=== PATIENT | female | born 1950 | race Caucasian/White ===

== ENCOUNTER 2021-11-04 11:26 | Outpatient (CLI) | payer MEDICARE, SELFPAY ==
[2021-11-04 11:56] VITALS: BP 151/75; PULSE 74; RESP 18; TEMP 36.4; O2SAT 99
== END 2021-11-04 12:10 | disposition home or self-care (01) ==
LOC: INF 11:31
PROVIDERS: PCP Family Medicine; Visit Provider Family Medicine
DX: M81.0 Age-related osteoporosis without current pathological fracture (principal)
CPT/HCPCS: 96372; J0897

== ENCOUNTER 2022-05-05 11:26 | Outpatient (CLI) | payer MEDICARE, SELFPAY ==
[2022-05-05 11:36] VITALS: BP 134/75; PULSE 68; RESP 18; TEMP 36.3; O2SAT 100
== END 2022-05-05 11:50 | disposition home or self-care (01) ==
LOC: INF 11:27
PROVIDERS: PCP Emergency Medicine; Visit Provider Family Medicine
DX: M81.0 Age-related osteoporosis without current pathological fracture (principal)
CPT/HCPCS: 96372; J0897

== ENCOUNTER 2022-11-06 10:00 | Outpatient (CLI) | payer MEDICARE, SELFPAY ==
[2022-11-06 10:08] VITALS: BP 140/81; PULSE 80; RESP 18; TEMP 36.6; O2SAT 100
== END 2022-11-06 10:25 | disposition home or self-care (01) ==
LOC: INF 10:01
PROVIDERS: PCP Nurse Practitioner Family; Visit Provider Nurse Practitioner Family
DX: M81.0 Age-related osteoporosis without current pathological fracture (principal)
CPT/HCPCS: 96372; J0897

== ENCOUNTER 2023-05-20 09:19 | Outpatient (CLI) | payer MEDICARE, SELFPAY ==
[2023-05-20 09:30] VITALS: BP 122/63; PULSE 72; RESP 18; O2SAT 99
== END 2023-05-20 09:35 | disposition home or self-care (01) ==
LOC: INF 09:22
PROVIDERS: PCP Nurse Practitioner Family; Visit Provider Nurse Practitioner Family
DX: M81.0 Age-related osteoporosis without current pathological fracture (principal)
CPT/HCPCS: 96372; J0897

== ENCOUNTER 2023-11-25 09:01 | Outpatient (CLI) | payer MEDICARE, SELFPAY ==
[2023-11-25] MEDS: DENOSUMAB 60 MG/ML SYRINGE SQ (09:16)
[2023-11-25 09:20] VITALS: BP 159/84; PULSE 78; RESP 18; TEMP 36.4; O2SAT 99
== END 2023-11-25 09:20 | disposition home or self-care (01) ==
LOC: INF 09:02
PROVIDERS: PCP Family Medicine; Visit Provider Family Medicine
DX: M81.0 Age-related osteoporosis without current pathological fracture (principal)
CPT/HCPCS: 96372; J0897

== ENCOUNTER 2024-05-26 08:53 | Outpatient (CLI) | payer MEDICARE, SELFPAY ==
[2024-05-26 09:05] VITALS: BP 131/66; PULSE 75; RESP 16; TEMP 36.7; O2SAT 98
[2024-05-26] MEDS: DENOSUMAB 60 MG/ML SYRINGE SQ (09:05)
== END 2024-05-26 09:15 | disposition home or self-care (01) ==
LOC: INF 08:55
PROVIDERS: PCP Family Medicine; Visit Provider Family Medicine
DX: M81.0 Age-related osteoporosis without current pathological fracture (principal)
CPT/HCPCS: 96372; J0897